=== PATIENT | female | born 1960 | race Caucasian/White ===

== ENCOUNTER 2016-12-27 11:32 | Emergency (ER) | payer BC, OTHER ==
--- NOTE | 2016-12-27 12:07 | ER Document Report ---
ED Medical Screen (RME) - General Stated Complaint: ABDOMINAL PAIN Notes: patient is a 56 year old female with a h/i gastric ulcers p/w epigastric abdominal pain for the past 4 day that became ore severe this am. has been episodic, but today constant with wax/wane in severity, 4/5 at its worst no n/v/d/c, last BM this AM no blood, nl nl bowel sounds, no rebound or abdominal tenderness on exam, distended and firm belly. I have greeted and performed a rapid initial assessment of this patient. A comprehensive ED assessment and evaluation of the patient, analysis of test results and completion of the medical decision making process will be conducted by additional ED providers. TRAVEL OUTSIDE OF THE [place] IN LAST 30 DAYS: No - Related Data Allergies/Adverse Reactions: sulfamethoxazole [From ] Allergy (Verified 04/24/16 18:15) trimethoprim [From Julra] Allergy (Verified 04/24/16 18:15) Past Medical History - Past Medical History Cardiac Medical History: Denies: Hx Congestive Heart Failure, Hx Coronary Artery Disease Past Surgical History: Reports: Hx Section, Hx Gynecologic Surgery, Hx Hysterectomy, Hx Tubal Ligation - Immunizations Hx Diphtheria, Pertussis, Tetanus Vaccination: Yes Physical Exam - Vital signs Vitals: Temp Pulse Resp BP Pulse Ox 97.5 F 78 19 141/78 H 95 12/27/16 11:41 12/27/16 11:41 12/27/16 11:41 12/27/16 11:41 12/27/16 11:41 Course - Vital Signs Vital signs: Temp Pulse Resp BP Pulse Ox 97.5 F 78 19 141/78 H 95 12/27/16 11:41 12/27/16 11:41 12/27/16 11:41 12/27/16 11:41 12/27/16 11:41
--- NOTE | 2016-12-27 12:20 | ER Document Report ---
ED General - General Chief Complaint: Upper Abdominal Pain Stated Complaint: ABDOMINAL PAIN Mode of Arrival: Medic Information source: Patient Notes: Patient presents to the emergency department with abdominal pain for the past 4 days worse this morning. Patient reports when she arrived at [facility] this morning to work she had excruciating stabbing pain into her right upper quad. She denies trauam, fever vomiting diarrhea. She denies pain with void. She reports she ate a normal dinner of mashed potatoes and meat last night. Coffee this morning. She reports since arrival to ED the pain has decreased. Declines pain medication. TRAVEL OUTSIDE OF THE [place] IN LAST 30 DAYS: No - HPI Onset: Other - 4 days Quality of pain: Achy, Stabbing Severity: Mild Pain Level: 2 Associated symptoms: None Exacerbated by: Denies Relieved by: Denies Similar symptoms previously: No Recently seen / treated by doctor: Yes - Related Data Allergies/Adverse Reactions: sulfamethoxazole [From ] Allergy (Verified 04/24/16 18:15) trimethoprim [From Julra] Allergy (Verified 04/24/16 18:15) Past Medical History - General Information source: Patient Last Menstrual Period: hyst - Social History Smoking Status: Current Every Day Smoker Chew tobacco use (# tins/day): Yes Frequency of alcohol use: None Drug Abuse: None Occupation: [employer] Lives with: Friend Family History: Reviewed & Not Pertinent Patient has suicidal ideation: No Patient has homicidal ideation: No - Medical History Medical History: Negative - Past Medical History Cardiac Medical History: Denies: Hx Congestive Heart Failure, Hx Coronary Artery Disease Renal/ Medical History: Denies: Hx Peritoneal Dialysis Past Surgical History: Reports: Hx Section, Hx Gynecologic Surgery, Hx Hysterectomy, Hx Tubal Ligation - Immunizations Hx Diphtheria, Pertussis, Tetanus Vaccination: Yes Review of Systems - Review of Systems Notes: Review HPI for review of systems., All other systems negative Physical Exam - Vital signs Vitals: Temp Pulse Resp BP Pulse Ox 97.5 F 78 19 141/78 H 95 12/27/16 11:41 12/27/16 11:41 12/27/16 11:41 12/27/16 11:41 12/27/16 11:41 - Notes Notes: PHYSICAL EXAMINATION: GENERAL: nontoxic looking HEAD: Atraumatic, normocephalic. EYES: Pupils equal round , extraocular movements intact, sclera anicteric, conjunctiva are normal. ENT: nares patent, oropharynx clear without exudates. Moist mucous membranes. NECK: Normal range of motion, supple without lymphadenopathy LUNGS: CTAB and equal. No wheezes rales or rhonchi. HEART: Regular rate and rhythm without murmurs ABDOMEN: Soft, slight right upper quad tenderness. Pt reports pain much better since arrival to ED, No guarding, no rebound EXTREMITIES: Normal range of motion, no pitting edema. No cyanosis. NEUROLOGICAL: Cranial nerves grossly intact. Normal sensory/motor PSYCH: Normal mood, normal affect. SKIN: Warm, Dry, normal turgor, no rashes or lesions noted Course - Re-evaluation Re-evalutation: 12/27/16 14:10 I have consulted the attending provider per [facility] guidelines 12/27/16 16:10 Pt feels good, no abdominal pain, instructed on US/labs, low fat diet, importance of fu with pcp, urology for reoccurring hematuria - Vital Signs Vital signs: Temp Pulse Resp BP Pulse Ox 97.5 F 78 19 141/78 H 95 12/27/16 11:41 12/27/16 11:41 12/27/16 11:41 12/27/16 11:41 12/27/16 11:41 - Laboratory Result Diagrams: 12/27/16 12:37 12/27/16 14:38 Laboratory results interpreted by me: 12/27/16 12/27/16 12/27/16 12:24 12:37 14:38 RDW 14.3 H Lipase 323.9 H Urine Blood MODERATE H - Diagnostic Test Radiology reviewed: Image reviewed, Reports reviewed - neg US, neg abd. Discharge - Discharge Clinical Impression: Elevated lipase, Hematuria, Elevated blood pressure reading Abdominal pain Qualifiers: Abdominal location: right upper quadrant Qualified Code(s): R10.11 - Right upper quadrant pain Condition: Stable Disposition: HOME, SELF-CARE Instructions: Abdominal Pain ([facility]), Low-Fat Diet ([facility]), Hematuria ([facility]) Additional Instructions: *You have been evaluated for abdominal pain, elevated lipase, hematuria *Monitor your blood pressure. Your blood pressure was elevated today. This may be because you were anxious, in pain or because you need medication. It is important to follow up with your primary care provider for full evaluation. *Low fat diet *Motrin as indicated for pain *Follow up with a primary care provider within one week for recheck *Follow up with a urologist for recheck of reoccurring hematuria *Return to ED for worsening condition, changes, needs *Return to ED if not better in 24 hours Forms: Elevated Blood Pressure, Return to Work
[2016-12-27 12:41] LABS: APPEARANCE,URINE SLIGHTLY-CLOUDY; BILIRUBIN,URINE NEGATIVE (NEGATIVE); GLUCOSE, URINE NEGATIVE (NEGATIVE); KETONES,URINE NEGATIVE (NEGATIVE); LEUKOCYTE ESTERASE,URINE NEGATIVE (NEGATIVE); NITRITE,URINE NEGATIVE (NEGATIVE); PROTEIN,URINE NEGATIVE (NEGATIVE); URINE SPECIFIC GRAVITY 1.006; UROBILINOGEN,URINE NEGATIVE mg/dL (<2.0)
[2016-12-27 12:59] LABS: ABSOLUTE BASOPHILS # (AUTO) 0.1 10^3/uL (0.0-0.2); ABSOLUTE EOSINOPHILS # (AUTO) 0.1 10^3/uL (0.0-0.6); ABSOLUTE LYMPHOCYTES (AUTO) 1.9 10^3/uL (0.5-4.7); ABSOLUTE MONOCYTES (AUTO) 0.4 10^3/uL (0.1-1.4); ABSOLUTE NEUT (AUTO) 5.1 10^3/uL (1.7-8.2); BASOPHILS % (AUTO) 0.7 % (0-2); EOSINOPHILS % (AUTO) 1.3 % (0-6); HEMATOCRIT 42.1 % (36.0-47.0); HEMOGLOBIN 14.1 g/dL (12.0-15.5); HGB HCT DIFFERENCE 0.2; LYMPHOCYTES % (AUTO) 25.1 % (13-45); MEAN CORPUSCULAR HEMOGLOBIN 29.2 pg (27.0-33.4); MEAN CORPUSCULAR HGB CONC 33.4 g/dL (32.0-36.0); MEAN CORPUSCULAR VOLUME 88 fl (80-97); MONOCYTES % (AUTO) 5.6 % (3-13); RED BLOOD COUNT 4.81 10^6/uL (3.72-5.28); RED CELL DISTRIBUTION WIDTH 14.3 % (11.5-14.0); SEGMENTED NEUTROPHILS % (AUTO) 67.3 % (42-78); WHITE BLOOD COUNT 7.5 10^3/uL (4.0-10.5)
[2016-12-27 15:06] LABS: ALANINE AMINOTRANSFERASE 29 U/L (9-52); ALBUMIN 4.4 g/dL (3.5-5.0); ALKALINE PHOSPHATASE 124 U/L (38-126); ANION GAP 10 (5-19); ASPARTATE AMINO TRANSFERASE 27 U/L (14-36); BILIRUBIN,TOTAL 0.6 mg/dL (0.2-1.3); BLOOD UREA NITROGEN 14 mg/dL (7-20); CALCIUM 9.8 mg/dL (8.4-10.2); CARBON DIOXIDE 27 mmol/L (22-30); CHLORIDE 107 mmol/L (98-107); GLUCOSE 89 mg/dL (75-110); LIPASE 323.9 U/L (23-300); POTASSIUM 4.1 mmol/L (3.6-5.0); SODIUM 143.7 mmol/L (137-145); TOTAL PROTEIN 6.9 g/dL (6.3-8.2)
[2016-12-27 16:39] VITALS: BP 139/73
== END 2016-12-27 16:25 | disposition home or self-care (01) ==
LOC: ER 11:32
DX: R10.11 Right upper quadrant pain (principal); R31.9 Hematuria, unspecified; R74.8 Abnormal levels of other serum enzymes; R03.0 Elevated blood-pressure reading, without diagnosis of hypertension; F17.200 Nicotine dependence, unspecified, uncomplicated; Z98.51 Tubal ligation status; Z90.710 Acquired absence of both cervix and uterus; Z88.1 Allergy status to other antibiotic agents
CPT/HCPCS: 36415; 74022; 76705; 80053; 81001; 83690; 85025; 99284

== ENCOUNTER 2018-08-21 14:28 | Emergency (ER) | payer BC ==
--- NOTE | 2018-08-21 14:48 | ER Document Report ---
ED General - General Stated Complaint: SHORTNESS OF BREATH Time Seen by Provider: 08/21/18 14:39 Mode of Arrival: Medic Information source: Patient, Relative, Emergency Med Personnel Notes: 57-year-old female with no reported past medical history but a 74-kpsn-rual smoking history presents with complaint of shortness of breath that started 1 week prior to arrival. Patient has had an associated productive cough. She has used her albuterol inhaler without relief. Patient denies fever, chills, chest pain, back pain, abdominal pain. She denies any recent hospitalizations. TRAVEL OUTSIDE OF THE [place] IN LAST 30 DAYS: No - HPI Onset: Last week Onset/Duration: Gradual, Persistent, Worse Quality of pain: No pain Associated symptoms: Chills, Productive cough, Shortness of breath Exacerbated by: Walking, Coughing Relieved by: Remaining still Similar symptoms previously: No Recently seen / treated by doctor: No - Related Data Allergies/Adverse Reactions: sulfamethoxazole [From Julra] Allergy (Verified 08/21/18 14:48) trimethoprim [From Julra] Allergy (Verified 08/21/18 14:48) Past Medical History - General Information source: Patient - Social History Smoking Status: Current Every Day Smoker Cigarette use (# per day): Yes - 15- Smoking Education Provided: Yes - Smoking cessation counseling was provided for 4 minutes at the bedside Frequency of alcohol use: None Drug Abuse: None Lives with: Spouse/Significant other Family History: Reviewed & Not Pertinent Patient has suicidal ideation: No Patient has homicidal ideation: No - Past Medical History Cardiac Medical History: Denies: Hx Congestive Heart Failure, Hx Coronary Artery Disease Renal/ Medical History: Denies: Hx Peritoneal Dialysis GI Medical History: Reports: Hx Ulcer Past Surgical History: Reports: Hx Section, Hx Gynecologic Surgery, Hx Hysterectomy, Hx Tubal Ligation - Immunizations Hx Diphtheria, Pertussis, Tetanus Vaccination: Yes Review of Systems - Review of Systems Notes: REVIEW OF SYSTEMS: CONSTITUTIONAL : Denies fever, chills, or sweats. Denies recent illness. Denies weight loss, recent hospitalizations. EENT: Denies visual changes, eye pain. Denies sore throat, oral lesions, difficulty swallowing. CARDIOVASCULAR: Denies chest pain. Denies palpitations. Denies lower extremity edema. RESPIRATORY: + Shortness of breath, productive cough, wheezing GASTROINTESTINAL: Denies abdominal pain or distention. Denies nausea, vomiting , or diarrhea. Denies blood in vomitus, stools, or per rectum. Denies black, tarry stools. Denies constipation. GENITOURINARY: Denies difficulty urinating, painful urination, frequency, blood in urine, or vaginal discharge. MUSCULOSKELETAL: Denies back or neck pain or stiffness. Denies joint pain or swelling. SKIN: Denies rash, lesions or sores. HEMATOLOGIC : Denies easy bruising or bleeding. LYMPHATIC: Denies swollen glands. NEUROLOGICAL: Denies confusion or altered mental status. Denies loss of consciousness. Denies dizziness or lightheadedness. Denies headache. Denies weakness or paralysis. Denies problems difficulty with ambulation, slurred speech. Denies sensory loss, numbness, or tingling. Denies seizures. PSYCHIATRIC: Denies anxiety or stress. Denies depression, suicidal ideation, or homicidal ideation. Denies visual or auditory hallucinations. Physical Exam - Vital signs Vitals: Resp BP Pulse Ox 19 120/69 91 L 08/21/18 14:38 08/21/18 14:38 08/21/18 14:38 - Notes Notes: PHYSICAL EXAMINATION: GENERAL: Well-appearing, well-nourished and in no acute distress. HEAD: Atraumatic, normocephalic. EYES: Pupils equal round and reactive to light, extraocular movements intact, conjunctiva are normal. ENT: Nares patent, oropharynx clear without exudates. Moist mucous membranes. NECK: Normal range of motion, supple without lymphadenopathy LUNGS: Diminished breath sounds right lower lung field with expiratory wheezing. HEART: Regular rate and rhythm without murmurs ABDOMEN: Soft, nontender, nondistended abdomen. No guarding, no rebound. No masses appreciated. Female : deferred Musculoskeletal: Normal range of motion, no pitting or edema. No cyanosis. NEUROLOGICAL: Cranial nerves grossly intact. Normal speech, normal gait. Normal sensory, motor exams PSYCH: Normal mood, normal affect. SKIN: Warm, Dry, normal turgor, no rashes or lesions noted. Course - Re-evaluation Re-evalutation: 08/21/18 20:26 Laboratory 08/21/18 08/21/18 08/21/18 14:43 14:43 14:43 WBC 10.3 RBC 4.28 Hgb 12.7 Hct 36.9 MCV 86 MCH 29.6 MCHC 34.3 RDW 14.2 H Plt Count 222 Seg Neutrophils % 73.6 Lymphocytes % 18.5 Monocytes % 6.7 Eosinophils % 0.4 Basophils % 0.8 Absolute Neutrophils 7.5 Absolute Lymphocytes 1.9 Absolute Monocytes 0.7 Absolute Eosinophils 0.0 Absolute Basophils 0.1 D-Dimer 0.30 Carbonic Acid HCO3/H2CO3 Ratio ABG pH ABG pCO2 ABG pO2 ABG HCO3 ABG Total CO2 ABG O2 Saturation ABG Base Excess FiO2 Sodium 138.5 Potassium 4.1 Chloride 99 Carbon Dioxide 28 Anion Gap 12 BUN 17 Creatinine 0.87 Est GFR ( Amer) > 60 Est GFR (Non-Af Amer) > 60 Glucose 115 H Calcium 9.4 Total Bilirubin 0.7 Direct Bilirubin 0.5 H Neonat Total Bilirubin Not Reportable Neonat Direct Bilirubin Not Reportable Neonat Indirect Bili Not Reportable AST 40 H ALT 26 Alkaline Phosphatase 132 H Creatine Kinase 59 CK-MB (CK-2) Troponin I NT-Pro-B Natriuret Pep Total Protein 7.3 Albumin 4.3 08/21/18 08/21/18 14:43 16:08 WBC RBC Hgb Hct MCV MCH MCHC RDW Plt Count Seg Neutrophils % Lymphocytes % Monocytes % Eosinophils % Basophils % Absolute Neutrophils Absolute Lymphocytes Absolute Monocytes Absolute Eosinophils Absolute Basophils D-Dimer Carbonic Acid 1.19 HCO3/H2CO3 Ratio 22:1 ABG pH 7.45 ABG pCO2 39.7 ABG pO2 81.1 ABG HCO3 27.2 H ABG Total CO2 28.4 H ABG O2 Saturation 96.4 ABG Base Excess 3.1 FiO2 2L Sodium Potassium Chloride Carbon Dioxide Anion Gap BUN Creatinine Est GFR ( Amer) Est GFR (Non-Af Amer) Glucose Calcium Total Bilirubin Direct Bilirubin Neonat Total Bilirubin Neonat Direct Bilirubin Neonat Indirect Bili AST ALT Alkaline Phosphatase Creatine Kinase CK-MB (CK-2) 0.74 Troponin I < 0.012 NT-Pro-B Natriuret Pep 66 Total Protein Albumin Chest X-Ray 08/21/18 14:45 IMPRESSION: NO ACUTE RADIOGRAPHIC FINDING IN THE CHEST. 57-year-old female with a 30-year smoking history presents with complaint of shortness of breath that she states has been ongoing for 1 week. Patient does admit to an associated productive cough. She denies any known medical problems but does use an albuterol inhaler as needed for shortness of breath. Upon arrival vitals were reviewed and patient is hypoxic on room air. She is visibly dyspneic. Exam is significant for diminished breath sounds on the right lower lung boggs with expiratory wheezing. Prior to arrival patient received breathing treatments and Solu-Medrol. An additional albuterol treatment was administered. CBC is without leukocytosis or anemia. CMP is unremarkable. ABG does show mild CO2 retention. Patient was ambulated on pulse ox and had a desaturation to 88%. I discussed admission with the patient who declines because she needs to go to work tomorrow. I explained with her smoking history and new oxygen requirement that it was in her best interest to come into the hospital but she declines. After performing a Medical Screening Examination, I spoke with the patient at length in regards to leaving the hospital against medical advice. I do not believe the patient should leave but the patient is alert oriented x4, understands the risks and benefits of staying and leaving including disability and . Pt understands that he can return at any time for further care and is more than welcome to do so. Pt verbalizes this understanding. Patient was evaluated and treated as appropriate for the patient's presenting symptoms and complaint, with consideration of any critical or life threatening conditions that may be associated with their obtained history and exam as noted above. All results were discussed with patient and admission was recommended but declined. Patient provided the opportunity to ask questions, and express concerns. Patient was educated on treatments based on their presumed diagnosis as noted above. At this time we will discharge the patient AGAINST MEDICAL ADVICE she was encouraged to return to the emergency department at any time. Verbal discharge instructions given a the bedside. Medication warnings reviewed. Patient is in agreement with this plan and has verbalized understanding of return precautions. After careful consideration I feel that that patient should be admitted to the hospital but has decided to leave AGAINST MEDICAL ADVICE Dictation on this chart was performed using voice recognition software and may result in unintended grammatical, spelling, syntax or errors. - Vital Signs Vital signs: Temp Pulse Resp BP Pulse Ox 99.5 F 24 H 115/57 L 94 08/21/18 14:46 08/21/18 16:41 08/21/18 16:41 08/21/18 16:41 - Laboratory Result Diagrams: 08/21/18 14:43 08/21/18 14:43 Laboratory results interpreted by me: 08/21/18 08/21/18 08/21/18 14:43 14:43 16:08 RDW 14.2 H ABG HCO3 27.2 H ABG Total CO2 28.4 H Glucose 115 H Direct Bilirubin 0.5 H AST 40 H Alkaline Phosphatase 132 H - Diagnostic Test Radiology reviewed: Image reviewed, Reports reviewed Discharge - Discharge Clinical Impression: COPD exacerbation, Hypoxia, Tobacco dependence, Cough Dyspnea Qualifiers: Dyspnea type: unspecified Qualified Code(s): R06.00 - Dyspnea, unspecified Condition: Good Disposition: AGAINST MEDICAL ADVICE Instructions: Chronic Obstructive Lung Disease ([facility]) Additional Instructions: We discussed admission due to your new oxygen requirement and low oxygen saturation. I did explain to you the risks of going home. Please know that you are able to return to the emergency department at any time. Follow up with your [id number] hours for further care or return to the ED IMMEDIATELY if symptoms worsen or you have any concerns. If you cannot afford to follow up with your primary care physician a list of low cost clinics have been provided at the end of your discharge papers as well. Most prescribed medications have multiple side effects. The safest thing to do is when filling your prescription speak to your pharmacist regarding possible interactions with your normal home medications and over the counter medications such as Ibuprofen, Tylenol, Benadryl. If you experience any symptoms that cause you discomfort or concern you should discontinue the medication immediately and return to the emergency room or call your primary care physician. Prescriptions: Doxycycline Hyclate 100 mg PO BID #14 capsule Prednisone [Deltasone 20 mg Tablet] 3 tab PO DAILY 5 Days #15 tablet Forms: Smoking Cessation Education Referrals: ENE TERAN FNP [NURSE PRACTITIONER] - Follow up as needed
[2018-08-21 14:56] LABS: ABSOLUTE BASOPHILS # (AUTO) 0.1 10^3/uL (0.0-0.2); ABSOLUTE LYMPHOCYTES (AUTO) 1.9 10^3/uL (0.5-4.7); ABSOLUTE MONOCYTES (AUTO) 0.7 10^3/uL (0.1-1.4); ABSOLUTE NEUT (AUTO) 7.5 10^3/uL (1.7-8.2); BASOPHILS % (AUTO) 0.8 % (0-2); EOSINOPHILS % (AUTO) 0.4 % (0-6); HEMATOCRIT 36.9 % (36.0-47.0); HEMOGLOBIN 12.7 g/dL (12.0-15.5); LYMPHOCYTES % (AUTO) 18.5 % (13-45); MEAN CORPUSCULAR HEMOGLOBIN 29.6 pg (27.0-33.4); MEAN CORPUSCULAR HGB CONC 34.3 g/dL (32.0-36.0); MEAN CORPUSCULAR VOLUME 86 fl (80-97); MONOCYTES % (AUTO) 6.7 % (3-13); PLATELET COUNT 222 10^3/uL (150-450); RED BLOOD COUNT 4.28 10^6/uL (3.72-5.28); RED CELL DISTRIBUTION WIDTH 14.2 % (11.5-14.0); SEGMENTED NEUTROPHILS % (AUTO) 73.6 % (42-78); TOTAL CELLS COUNTED % (AUTO) 100 %; WHITE BLOOD COUNT 10.3 10^3/uL (4.0-10.5)
[2018-08-21 15:15] LABS: ALANINE AMINOTRANSFERASE 26 U/L (9-52); ALBUMIN 4.3 g/dL (3.5-5.0); ALKALINE PHOSPHATASE 132 U/L (38-126); ANION GAP 12 (5-19); ASPARTATE AMINO TRANSFERASE 40 U/L (14-36); BILIRUBIN,DIRECT 0.5 mg/dL (0.0-0.4); BILIRUBIN,TOTAL 0.7 mg/dL (0.2-1.3); BLOOD UREA NITROGEN 17 mg/dL (7-20); CALCIUM 9.4 mg/dL (8.4-10.2); CARBON DIOXIDE 28 mmol/L (22-30); CHLORIDE 99 mmol/L (98-107); CREATINE KINASE 59 U/L (30-135); GLUCOSE 115 mg/dL (75-110); POTASSIUM 4.1 mmol/L (3.6-5.0); SODIUM 138.5 mmol/L (137-145); TOTAL PROTEIN 7.3 g/dL (6.3-8.2)
[2018-08-21 15:24] LABS: CREATINE KINASE MB 0.74 ng/mL (<4.55); NT PRO BNP 66 pg/mL (5-900)
[2018-08-21 15:26] LABS: TROPONIN I < 0.012 ng/mL
--- NOTE | 2018-08-21 15:30 | RADIOLOGY REPORT (SQ) ---
EXAM DESCRIPTION: CHEST 2 VIEWS COMPLETED DATE/TIME: 08/21/2018 3:19 pm REASON FOR STUDY: sob hypoxia diminished right BS COMPARISON: None. EXAM PARAMETERS: NUMBER OF VIEWS: two views TECHNIQUE: Digital Frontal and Lateral radiographic views of the chest acquired. RADIATION DOSE: NA LIMITATIONS: none FINDINGS: LUNGS AND PLEURA: No opacities, masses or pneumothorax. No pleural effusion. MEDIASTINUM AND HILAR STRUCTURES: No masses or contour abnormalities. HEART AND VASCULAR STRUCTURES: Heart normal size. No evidence for failure. BONES: No acute findings. HARDWARE: None in the chest. OTHER: No other significant finding. IMPRESSION: NO ACUTE RADIOGRAPHIC FINDING IN THE CHEST. TECHNICAL DOCUMENTATION: JOB ID: [id number] [employer]- All Rights Reserved Reading location - IP/workstation name: [email or web address]
[2018-08-21 16:20] LABS: ARTERIAL BLOOD BASE EXCESS 3.1 mmol/L; ARTERIAL BLOOD H2CO3 1.19 mmol/L (1.05-1.35); ARTERIAL BLOOD HCO3 27.2 mmol/L (20-24); ARTERIAL BLOOD O2 SATURATION 96.4 % (94-98); ARTERIAL BLOOD PCO2 39.7 mmHg (35-45); ARTERIAL BLOOD PH 7.45 (7.35-7.45); ARTERIAL BLOOD PO2 81.1 mmHg (80-100); ARTERIAL BLOOD TOTAL CO2 28.4 mmol/L (21-25)
[2018-08-21 16:21] LABS: ARTERIAL BLOOD FIO2 2L
[2018-08-21] MEDS ORDERED: ALBUTEROL SULFATE HFA (90 MCG/PUFF) 8 GM MDI (1 MDI/ER DISP) IH PRN (16:41)
[2018-08-21 16:46] VITALS: BP 115/57
--- NOTE | 2018-08-22 19:21 | EKG REPORT ---
SEVERITY:- BORDERLINE ECG - SINUS RHYTHM BORDERLINE T ABNORMALITIES, ANT-LAT LEADS : Confirmed by: Benito Rizo 22-Aug-2018 19:19:45
== END 2018-08-21 17:01 | disposition left against medical advice (07) ==
LOC: ER 14:28
DX: J44.1 Chronic obstructive pulmonary disease with (acute) exacerbation (principal); R06.02 Shortness of breath; R05 Cough; R09.02 Hypoxemia; F17.210 Nicotine dependence, cigarettes, uncomplicated; Z71.6 Tobacco abuse counseling; Z88.1 Allergy status to other antibiotic agents; Z53.29 Procedure and treatment not carried out because of patient's decision for other reasons
CPT/HCPCS: 93005; 99406; 99285; 36415; 82553; 82803; 82550; 85025; 80053; 84484; 85379; 83880; 71046; 93010; J3490